=== PATIENT | female | born 1945 | race Caucasian/White ===

== ENCOUNTER 2020-05-29 14:54 | Emergency (ER) | payer MEDICARE, BC, SELFPAY ==
[2020-05-29 15:16] VITALS: BP 172/83; PULSE 70; RESP 16; TEMP 36.4; O2SAT 100; BMI 25.7
--- NOTE | 2020-05-29 15:28 | CT_ITS ---
WS: [id number] CT HEAD NONCONTRAST HISTORY: head injury TECHNIQUE: Contiguous axial imaging performed through the brain in 2.5 mm imaging. Bone and soft tiss ue windows. Sagittal and coronal reformats reviewed. All CT scans at [facility] use at le ast one of these dose optimization techniques: automated exposure control; mA and/or kV adjustment pe r patient size (includes targeted exams where dose is matched to clinical indication); or iterative r econstruction. DLP: 764.85 mGy.cm COMPARISON: None available. No acute intracranial hemorrhage, midline shift or mass effect. Mild atrophy and mild chronic microvascular ischemic disease. 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 Ventricles: Normal size with no hydrocephalus. Paranasal sinuses: As visualized are clear. Mastoid air cells: Well pneumatized. Calvarium and scalp: Skull is intact with no soft tissue edema or swelling. CT/CT head wo con* [id number] IMPRESSION: 1. No acute intracranial hemorrhage or edema. 2. Mild atrophy and chronic ischemic disease.
--- NOTE | 2020-05-30 00:12 | ED_ITS ---
HPI - Head Injury General: Chief complaint: Head Injury Stated complaint: hit head Tuesday, still has pain, not quite right Time Seen by Provider: 05/29/20 16:37 History of Present Illness: HPI Narrative: This patient is a 74-year-old female who fell on Tuesday. She slipped on the ice and fell backwards striking the back of her head. She had no LOC. She has not had nausea vomiting, dizziness. She continues to have some headache and just does not feel right. She cannot be more specific than that. She has been concerned that she could have some intracranial injury and so came into the ER for a CT scan today. Complaint: head injury and fall Onset (ago): day(s) (6) Mechanism of Injury: fall Place: home Loss of Consciousness: no Location of injury: occipital Severity: moderate Radiation: none Other Injuries: none Context: on aspirin Associated symptoms: Reports other (Just does not feel right); Deny nausea, neck pain or vomiting Review of Systems General: Reports: 10 or more systems reviewed and unremarkable except in HPI and below Const: Denies: fever(s), chills, fatigue or malaise Eyes: Denies: change in vision ENMT: Denies: odynophagia Card: Denies: chest pain or swelling of feet/ankles Resp: Denies: dyspnea, productive cough or non-productive cough GI: Denies: abdominal pain, nausea or vomiting : Denies: flank pain or difficulty voiding Musc: Denies: neck pain or back pain Skin/Breast: Denies: rash Neuro: Reports: headache(s); Denies: numbness in extremities or weakness in extremities Juan M/Lymph: Denies: easy bruising or easy bleeding PFSH ED PFSH: Surgical History History of carpal tunnel repair (~2005) History of cholecystectomy (~2005) History of tubal ligation (~1978) Family History Father Hypertension Mother Heart disease Sister Colon cancer Denies family history of Ovarian cancer Diabetes Hyperlipidemia Breast cancer Family history of thyroid problem Stroke Social History Additional social history: - Tobacco use: Denies Alcohol use: Denies Drug use: Denies Physical Exam Const: COMMON NORMALS: no acute distress, patient oriented x3, no limitations and alert GENERAL APPEARANCE: cooperative and comfortable HENMT: HEAD & SCALP: normal to inspection FACE & SINUS: normal facial exam Eye: GENERAL EYE: appearance normal, both eyes and all related structures Neck/C-Spine: COMMON NORMALS: supple, no meningeal signs and no JVD Chest: COMMONS NORMALS: normal inspection of the chest Resp: COMMON NORMALS: normal respiratory effort, No use of accessory muscles and clear to auscultation bilaterally AUSCULTATION: clear to auscultation bilaterally Cardio: COMMON NORMALS: no JVD, regular rate, regular rhythm and No murmurs present (Cardio) RATE: regular rate RHYTHM: regular rhythm GI: COMMON NORMALS: Normal to inspection, nondistended, normoactive bowel sounds present, Soft to palpation and non-tender INSPECTION: Yes normal to inspection AUSCULTATION: Yes normoactive bowel sounds PALPATION: Yes Soft to palpation Back/Pelvis: COMMON NORMALS: thoracic and lumbar spine normal to inspection Extremity: COMMON NORMALS: normal to inspection Neuro: COMMON NORMALS: patient oriented x3, moves all extremities, no focal motor deficits and no sensory deficits noted SENSORIUM/ORIENTATION: Yes alert MENINGEAL SIGNS: Yes no meningeal signs Psych: COMMON NORMALS: mental status grossly normal, cooperative and normal affect Skin: COMMON NORMALS: no rashes or lesions noted and turgor normal GENERAL SKIN EXAM: no rashes or lesions noted and turgor normal Course ED course: CT the head was negative. We discussed concussive signs and symptoms as well as treatment. She was relieved to know that the CT scan was normal. She will follow-up with her PCP as needed. Vital Signs: Vital signs: Vital Signs Temperature 97.5 F L 05/29/20 15:16 Pulse Rate 70 05/29/20 15:16 Respiratory Rate 16 05/29/20 15:16 Blood Pressure 172/83 05/29/20 15:16 Pulse Oximetry 100 05/29/20 15:16 Discharge Plan Discharge Patient Disposition: Home Clinical Impression: Concussion without loss of consciousness Qualifiers: Encounter type: initial encounter Qualified Code(s): S06.0X0A - Concussion without loss of consciousness, initial encounter Condition: Stable Prescriptions: No Action simvastatin 10 mg tablet 10 mg PO DAILY RF: 0 diltiazem HCl 120 mg capsule,extended release 24 hr 120 mg PO DAILY RF: 0 aspirin 81 mg tablet,delayed release (DR/EC) 81 mg PO DAILY RF: 0 valsartan-hydrochlorothiazide 80-12.5 mg tablet 1 tab PO DAILY RF: 0 betamethasone, augmented 0.05 % ointment 1 applic TOPICAL .twice per week Qty: 45 RF: 3 Discharge Orders: Discharge ED (Routine); Ordered 05/29/20 Ordered By: Dorcas Amin Referrals: Omid Rebollar MD [Primary Care Provider] - Discharge Diet: Usual diet Discharge Activity: Resume usual activity Patient Instructions: Concussion (ED), Opioid Safety Activity Restrictions/Additional Instructions: Follow up with your doctor if not improving within another 5 days. Return to [facility] ED if new or worse symptoms. Coding Level of Care Code ED Housekeeping Staff for Lisa May
== END 2020-05-29 17:11 | disposition home or self-care (01) ==
PROVIDERS: Emergency Provider Emergency Medicine; PCP Family Medicine
DX: S06.0X0A Concussion without loss of consciousness, initial encounter (principal); Z79.82 Long term (current) use of aspirin; W00.0XXA Fall on same level due to ice and snow, initial encounter
CPT/HCPCS: 70450; 99282

== ENCOUNTER → 2022-01-05 14:01 | Outpatient (BNVA) | payer MEDICARE, BC, SELFPAY | PROVIDERS: PCP Family Medicine; Visit Provider Nurse Practitioner Women's Health | DX: N95.0 Postmenopausal bleeding (principal) | CPT/HCPCS: 76830; 87624 ==

== ENCOUNTER → 2022-01-28 13:43 | Outpatient (BNVA) | payer MEDICARE, BC, SELFPAY | PROVIDERS: PCP Family Medicine; Visit Provider Nurse Practitioner Women's Health | DX: N95.0 Postmenopausal bleeding (principal) | CPT/HCPCS: 88305 ==

== ENCOUNTER 2022-05-12 10:01 | Day surgery (SDC) | payer MEDICARE, BC, SELFPAY ==
[2022-05-11 11:44] VITALS: BMI 26.6
[2022-05-12] VITALS (9 sets, daily range): BP systolic 127–158; BP diastolic 60–85; PULSE 61–68; RESP 16–18; TEMP 36.2–36.4; O2SAT 95–99
[2022-05-12] MEDS: sodium chloride 0.9% 1,000 ML 30 ML IV (10:35)
[2022-05-12] MEDS: scopolamine 1.5 Patch 1 PATCH TRANSDERMA (10:35)
--- NOTE | 2022-05-12 10:40 | W.PM.OPSUD ---
Surgery/Procedure H&P Update DATE OF PROCEDURE: May 12, 2022 DATE H&P PERFORMED: 05/28/22 H&P UPDATE INFORMATION: I have reviewed H&P completed within last 30 days, I have examined patient prior to procedure and No changes to prior documentation PREOP DIAGNOSIS: PostMenopausal bleeding PLANNED PROCEDURE: Operation Date: 05/12/22 11:20 Proposed Procedures p Hysterosocpy, dilation and curettage with Myosure [id number],[id number],N95.0(Not Applicable) - Urbano Joy MD s Dilation And Curettage (D&C)(Not Applicable) - Urbano Joy MD
[2022-05-12] MEDS: ceFAZolin 2,000 MG in sodium chloride 0.9% (plus) 50 ML 100 MG IV (10:48)
[2022-05-12 10:52] LABS: Basophils % 0.6 %; Eosinophils # 0.2 10^3/uL (0.0-0.8); Eosinophils % 4.6 %; Hematocrit 38.5 % (37.0-47.0); Hemoglobin 12.8 g/dL (11.5-15.3); Lymphocytes # 0.7 10^3/uL (0.8-4.8); Lymphocytes % 18.5 %; Mean Corpuscular HGB Conc 33.2 g/dL (30.0-36.0); Mean Corpuscular Volume 90.4 fl (81-99); Mean Platelet Volume 8.6 fL (7.4-10.4); Monocytes # 0.4 10^3/uL (0.2-0.9); Monocytes % 10.5 %; Neutrophils % 65.5 %; Nucleated Red Blood Cells % 0 %; Platelet Count 311 10^3/cmm (130-400); Red Blood Count 4.26 10^6/uL (4.1-5.3); Red Cell Distribution Width 11.6 % (12.1-15.1); White Blood Count 3.5 10^3/uL (4.0-10.0)
[2022-05-12 11:06] LABS: Alanine Aminotransferase 25 U/L (0-33); Albumin Level 4.4 g/dL (3.5-5.2); Alkaline Phosphatase 112 U/L (35-105); Aspartate Amino Transferase 21 U/L (0-32); Blood Urea Nitrogen 24 mg/dL (8-23); Calcium 9.4 mg/dL (8.5-10.5); Carbon Dioxide 25 mmol/L (22-29); Chloride 108 mmol/L (98-107); Globulin 2.5 g/dL (1.3-4.6); Glucose 95 mg/dL (65-115); Osmolality Calculated 298 mOsm/kg (285-295); Sodium 142 mmol/L (136-145); Total Bilirubin 0.5 mg/dL (0.15-1.2); Total Protein 6.9 g/dL (6.6-8.7)
[2022-05-12 11:06] LABS: Add Urine Microscopic? YES; Bacteria Urine 1+ /hpf; Bilirubin Urine Neg (Negative); Blood Urine Neg (Negative); Glucose Urine UA Norm (Normal); Ketones Urine Negative (Negative); Leukocyte Esterase Urine Trace (Negative); Nitrate Urine Negative (Negative); Protein Urine Neg (Negative); Specific Gravity, Urine 1.025 (1.005-1.030); Urine Appearance Hazy (CLEAR); Urine Color Yellow (Yellow); Urobilinogen Urine Neg (Negative); pH Urine 5 (5-7)
[2022-05-12 11:07] LABS: Add Urine Culture? No
--- NOTE | 2022-05-12 11:22 | ANES.PREANE2 ---
Pre-Anesthetic Assessment Height/Weight: Height 1.63 m Weight 70.307 kg O2 Del Method 05/12/22 10:47 Preop Diagnosis: PostMenopausal bleeding Operation Date: 05/12/22 11:20 Proposed Procedures p Hysterosocpy, dilation and curettage with Myosure 22127,[id number],73219,N95.0(Not Applicable) - Urbano Joy MD s Dilation And Curettage (D&C)(Not Applicable) - Urbano Joy MD Familial anesthetic complications: none Was Beta Yoli taken within 24 hours: N/A Was Clonidine taken within 24 hours: N/A Last intake: Intake Last Liquid Date 05/11/22 Last Liquid Time 20:00 Last Solid Date 05/11/22 Last Solid Time 19:00 Social No alcohol and No tobacco Exam alert, oriented x 3, clear to auscultation bilaterally and regular rate & rhythm Airway Submandibular: within normal limits Cervical ROM: within normal limits Mallampati: Class II Dentition: full CV/HEM Hypertension Metabolic Hyperlipidemia Anesthetic Plan ASA status: 2 Anesthesia: General Medications/Allergies Home Medications Medication Instructions Recorded Confirmed Last Taken Type aspirin 81 mg tablet,delayed 81 mg PO DAILY 10/18/19 05/11/22 05/11/22 08:00 History release diltiazem HCl 120 mg capsule,24 120 mg PO DAILY 10/18/19 05/11/22 05/11/22 History hr,extended release latanoprost 0.005 % eye drops 1 drp ophthalmic (eye) DAILY 11/07/20 05/11/22 05/11/22 History atorvastatin 40 mg tablet 40 mg PO DAILY 11/11/21 05/11/22 05/11/22 History betamethasone, augmented 0.05 % 1 applic topical .twice per week 11/11/21 05/11/22 1 Day Ago Rx topical ointment #45 grams ~05/10/22 potassium chloride 10 mEq 10 meq PO DAILY 11/11/21 05/11/22 05/11/22 History capsule,extended release ultra c0q10 1 tab PO DAILY 11/11/21 05/11/22 05/11/22 History Allergies Allergy/AdvReac Type Severity Reaction Status Date / Time lisinopril Allergy Mild ADR-Cough Verified 05/11/22 11:41 Current Medications Generic Name Dose Route Start Last Admin Trade Name Freq PRN Reason Stop Dose Admin Sodium Chloride 1,000 mls @ 30 mls/hr 05/12/22 10:15 05/12/22 10:35 Sodium Chloride 0.9% IV 05/13/22 10:14 30 mls/hr .Q24H [place] Administration PFSH Anesthesia Medical History Hypertension Lichen sclerosus of female genitalia No pertinent past medical history neghx:htn,dm,thyroid,dvt/pe PCP: Surgical History H/O hand surgery (~2019) tendon release--L hand History of carpal tunnel repair (~2005) History of cholecystectomy (~2005) History of tubal ligation (~1978) Family History Father Hypertension Hyperlipidemia Mother Heart disease Sister No problems noted. Son Hypertension x2 Denies family history of Colon cancer Ovarian cancer Diabetes Breast cancer Family history of thyroid problem Stroke Social History Smoking and tobacco status: never smoked Data Anesthesia 05/12/22 10:39 05/12/22 10:39 Short CBC 05/12/22 Range/Units 10:39 WBC 3.5 L (4.0-10.0) 10^3/uL Hgb 12.8 (11.5-15.3) g/dL Hct 38.5 (37.0-47.0) % MCV 90.4 (81-99) fl Plt Count 311 (130-400) 10^3/cmm Neut % (Auto) 65.5 % Neut # (Auto) 2.30 (1.8-7.7) 10^3/uL BMP 05/12/22 10:39 Sodium 142 Potassium 4.0 Chloride 108 H Carbon Dioxide 25 BUN 24 H Creatinine 0.8 Glucose 95 Calcium 9.4 Liver Function 05/12/22 Range/Units 10:39 Total Bilirubin 0.5 (0.15-1.2) mg/dL AST 21 (0-32) U/L ALT 25 (0-33) U/L Alkaline Phosphatase 112 H (35-105) U/L Albumin 4.4 (3.5-5.2) g/dL Urine 05/12/22 Range/Units 10:17 Urine Color Yellow (Yellow) Urine Appearance Hazy A (CLEAR) Urine pH 5 (5-7) Ur Specific [place] 1.025 (1.005-1.030) Urine Protein Neg (Negative) Urine Glucose (UA) Norm (Normal) Urine Ketones Negative (Negative) Urine Nitrate Negative (Negative) Urine Bilirubin Neg (Negative) Ur Leukocyte Esterase Trace H (Negative) Urine RBC None (0-2) /hpf Urine WBC 5-10 H (0-5) /hpf Cardiac Studies: No Data to Display
--- NOTE | 2022-05-12 11:25 | PM.OP ---
Operative Report Date of procedure: May 12, 2022 Pre-op diagnosis: Preop Diagnosis PostMenopausal bleeding Post-op diagnosis: Same as above. Endometrial polyp. Procedure done: Hysteroscopy with D&C via MyoSure. Hysteroscopic polypectomy. Specimens removed/disposition: Endometrial polyp Pathology: Endometrial polyp Surgeon: Urbano Joy MD Estimated blood loss (mL): 2 IV fluids (mL): 500 Complications: None Brief History: Mrs. Diaz 76-year-old female with postmenopausal bleeding and endometrial thickness Procedure: After informed consent, the risks included but were not limited to bleeding, infection, injury to internal organs. The patient was counseled on a possible laparotomy and on the potential need for hysterectomy. The patient expressed understanding of the risks involved, all questions were answered, and the patient consented to the procedure. The patient was taken to the operating room where general anesthesia was administered. She was placed in the dorsal lithotomy position and prepped and draped in sterile fashion. A time out procedure was performed. The patient was examined under anesthesia and found to have a normal uterus with normal adnexa. A sterile weight speculum was placed in the vagina. The uterus was then gently sounded to [7] cm, and the cervix was dilated. The 0 degrees MyoSure hysteroscope was advanced gently to the uterine fundus while visualizing the monitor. Survey of the uterine cavity showed: Endometrial polyp on the left wall, the fundus shows atrophic endometrium; left ostium was visualized, and lateral wall with atrophic endometrium with endometrial polyp; right ostium visualized, and lateral wall with atrophic endometrium; anterior and posterior miguel are with atrophic endometrium; endocervical canal is normal. The MyoSure device was advanced and the direct visualization the polyp was morcellated without complication. At the end of morcellation the fluid deficit was 15 mL and was estimated at approximately 0 mL were on the floor. There was minimal bleeding noted and the tenaculum removed with goad hemostasis noted. The patient tolerated the procedure well. The patient was taken to the recovery area in stable condition.
--- NOTE | 2022-05-12 14:11 | ANE.PACU2 ---
Inpatient post-anesthesia follow up: Airway intact: Yes Vital signs: Temperature 97.4 F Pulse Rate 64 Respiratory Rate 18 Blood Pressure 145/71 Pulse Oximetry 95 Oxygen Delivery Me thod Room Air Oxygen Flow Rate 6 Fraction of Inspir ed Oxygen Hydration adequate: Yes Nausea and vomiting: No Pain level: 2 Mental status: Baseline
== END 2022-05-12 12:40 | disposition home or self-care (01) ==
PROVIDERS: Visit Provider Obstetrics & Gynecology
PROC: 0UDB8ZZ Extraction of Endometrium, Via Natural or Artificial Opening Endoscopic (ICD-10-PCS; CPT 58558; principal; 2022-05-12 11:10)
PROC: (CPT 58120; 2022-05-12 11:10)
DX: N95.0 Postmenopausal bleeding (principal); I10 Essential (primary) hypertension; E78.5 Hyperlipidemia, unspecified; Z79.82 Long term (current) use of aspirin
CPT/HCPCS: 58558; 80053; 81001; 85025; 86850; 86900; 87077; 87086; 87186; 88305; J0690; J1100; J1885; J2405; J2704; J3010; J7030

== ENCOUNTER → 2022-11-25 12:42 | Outpatient (BNVA) | payer MEDICARE, BC, SELFPAY | PROVIDERS: PCP Nurse Practitioner Women's Health; Referring Provider Nurse Practitioner Women's Health; Visit Provider Nurse Practitioner Family | DX: D22.5 Melanocytic nevi of trunk (principal); L57.8 Other skin changes due to chronic exposure to nonionizing radiation; D69.2 Other nonthrombocytopenic purpura; L57.0 Actinic keratosis; L72.0 Epidermal cyst; Z87.891 Personal history of nicotine dependence | CPT/HCPCS: 10060; 17004; 99203 ==

== ENCOUNTER → 2023-06-02 13:58 | Outpatient (BNVA) | payer MEDICARE, BC, SELFPAY | PROVIDERS: PCP Nurse Practitioner Women's Health; Visit Provider Dermatology | DX: L82.0 Inflamed seborrheic keratosis (principal); L57.0 Actinic keratosis; L91.8 Other hypertrophic disorders of the skin; L30.0 Nummular dermatitis; L72.0 Epidermal cyst; D23.61 Other benign neoplasm of skin of right upper limb, including shoulder | CPT/HCPCS: 17000; 17110; 99214 ==

== ENCOUNTER → 2023-11-30 13:15 | Outpatient (BNVA) | payer MEDICARE, BC, SELFPAY | PROVIDERS: PCP Nurse Practitioner Women's Health; Visit Provider Nurse Practitioner Family | DX: L57.0 Actinic keratosis (principal); L72.0 Epidermal cyst; L30.0 Nummular dermatitis; D18.01 Hemangioma of skin and subcutaneous tissue; D23.61 Other benign neoplasm of skin of right upper limb, including shoulder | CPT/HCPCS: 17000; 99214 ==

== ENCOUNTER → 2024-02-15 10:44 | Outpatient (BNVA) | payer MEDICARE, BC, SELFPAY | PROVIDERS: PCP Nurse Practitioner Women's Health; Visit Provider Surgery | DX: Z12.11 Encounter for screening for malignant neoplasm of colon | CPT/HCPCS: 99024; 99203 ==

== ENCOUNTER → 2024-02-22 09:05 | Outpatient (BNVA) | payer MEDICARE, BC, SELFPAY | PROVIDERS: PCP Nurse Practitioner Women's Health; Visit Provider Family Medicine | DX: K62.5 Hemorrhage of anus and rectum (principal) | CPT/HCPCS: 82274 ==

== ENCOUNTER → 2024-02-29 10:14 | Outpatient (BNVA) | payer MEDICARE, BC, SELFPAY | PROVIDERS: PCP Nurse Practitioner Women's Health; Visit Provider Surgery | DX: K62.5 Hemorrhage of anus and rectum (principal) | CPT/HCPCS: 99213 ==

== ENCOUNTER 2024-03-15 08:35 | Day surgery (SDC) | payer MEDICARE, BC, SELFPAY ==
[2024-03-15 08:55] VITALS: BP 154/81; PULSE 62; RESP 18; TEMP 36.3; O2SAT 98
[2024-03-15] MEDS: sodium chloride 0.9% 500 ML 15 ML IV (09:08)
--- NOTE | 2024-03-15 09:18 | W.PM.OPSUD ---
Surgery/Procedure H&P Update DATE OF PROCEDURE: March 15, 2024 DATE H&P PERFORMED: 02/15/24 H&P UPDATE INFORMATION: I have reviewed H&P completed within last 30 days, I have examined patient prior to procedure, No changes to prior documentation and H&P is in [facility] EMR on date indicated PLANNED PROCEDURE: Operation Date: 03/15/24 09:55 Proposed Procedures p Colonoscopy 45915, G0105, K62.5(Not Applicable) - Avila Lombardi MD
--- NOTE | 2024-03-15 09:44 | ANES.PREANE2 ---
Pre-Anesthetic Assessment Height/Weight: Height 1.63 m Weight 71.214 kg Temp Pulse Resp BP Pulse Ox 97.3 F L 62 18 154/81 98 03/15/24 08:55 03/15/24 08:55 03/15/24 08:55 03/15/24 08:55 03/15/24 08:55 Preop Diagnosis: Rectal Bleeding Operation Date: 03/15/24 09:55 Proposed Procedures p Colonoscopy 92716, G0105, K62.5(Not Applicable) - Avila Lombardi MD Familial anesthetic complications: none Was Beta Yoli taken within 24 hours: N/A Was Clonidine taken within 24 hours: N/A Last intake: Intake Last Liquid Date 03/14/24 Last Liquid Time 21:00 Last Solid Date 03/13/24 Last Solid Time 19:00 Social Alcohol (monthly) Exam alert, oriented x 3, clear to auscultation bilaterally and regular rate & rhythm Airway Submandibular: within normal limits Cervical ROM: within normal limits Mallampati: Class II Dentition: full Pulmonary None reported CV/HEM Hypertension Angiogram 09/02/23 30% blockage per patient. None reported Hepatic None reported GI None reported Metabolic Hyperlipidemia [facility] None reported Neuropsych None reported Anesthetic Plan ASA status: 2 Anesthesia: MAC Medications/Allergies Home Medications Medication Instructions Recorded Confirmed Last Taken Type aspirin 81 mg tablet,delayed 81 mg PO DAILY 10/18/19 03/13/24 03/12/24 History release diltiazem HCl 120 mg capsule,24 120 mg PO DAILY 10/18/19 03/13/24 03/14/24 History hr,extended release atorvastatin 40 mg tablet 40 mg PO DAILY 11/11/21 03/13/24 03/14/24 History ultra c0q10 1 tab PO DAILY 11/11/21 03/13/24 03/14/24 History betamethasone, augmented 0.05 % 1 applic topical .twice weekly 02/08/24 03/13/24 03/14/24 Rx topical ointment skin irritation #45 grams psyllium husk 3.4 gram/5.4 gram 1 tbsp PO DAILY 02/08/24 03/13/24 03/14/24 History oral powder (Metamucil) valsartan 80 1 tab PO DAILY 11/06/24 12/03/24 12/04/24 History mg-hydrochlorothiazide 12.5 mg tablet Allergies Allergy/AdvReac Type Severity Reaction Status Date / Time lisinopril Allergy Mild ADR-Cough Verified 02/29/24 10:15 Current Medications Generic Name Dose Route Start Last Admin Trade Name Freq PRN Reason Stop Dose Admin Sodium Chloride 500 mls @ 15 mls/hr 03/15/24 08:44 03/15/24 09:08 Sodium Chloride 0.9% IV 03/16/24 08:43 15 mls/hr .Q24H PRN Administration COLONOSCOPY FLUIDS PFSH Anesthesia Medical History No pertinent past medical history neghx:htn,dm,thyroid,dvt/pe PCP: Lichen sclerosus of female genitalia Hypertension Surgical History Status post hysteroscopic polypectomy (~05/12/22) Hysteroscopy D&C and polypectomy with MyoSure performed by Dr. Joy for Postmenopausal bleeding. H/O hand surgery (~2019) tendon release--L hand History of carpal tunnel repair (~2005) History of cholecystectomy (~2005) History of tubal ligation (~1978) Family History Father Hypertension Hyperlipidemia Mother Heart disease Sister Colon cancer Son Hypertension x2 Denies family history of Ovarian cancer Diabetes Breast cancer Family history of thyroid problem Stroke Social History Smoking and tobacco/nicotine status: never used tobacco/nicotine Alcohol intake: current Alcohol intake frequency: holidays/special occasions only Data Anesthesia Cardiac Studies: No Data to Display
[2024-03-15 10:28] VITALS: BP 125/59; PULSE 68; RESP 18; TEMP 36.3; O2SAT 95
[2024-03-15 10:40] VITALS: BP 118/64; PULSE 58; RESP 18; O2SAT 98
--- NOTE | 2024-03-15 11:15 | ANE.PACU2 ---
Inpatient post-anesthesia follow up: Airway intact: Yes Vital signs: Temperature 97.4 F Pulse Rate 58 Respiratory Rate 18 Blood Pressure 118/64 Pulse Oximetry 98 Oxygen Delivery Me thod Room Air Oxygen Flow Rate 5 Fraction of Inspir ed Oxygen Hydration adequate: Yes Nausea and vomiting: No Pain level: 1 Mental status: Baseline
== END 2024-03-15 11:15 | disposition home or self-care (01) ==
PROVIDERS: Visit Provider Surgery
PROC: 0DJD8ZZ Inspection of Lower Intestinal Tract, Via Natural or Artificial Opening Endoscopic (ICD-10-PCS; CPT 45378; principal; 2024-03-15 09:55)
DX: Z12.11 Encounter for screening for malignant neoplasm of colon (principal); D12.2 Benign neoplasm of ascending colon; D12.4 Benign neoplasm of descending colon; D12.3 Benign neoplasm of transverse colon; I10 Essential (primary) hypertension; E78.5 Hyperlipidemia, unspecified; Z79.82 Long term (current) use of aspirin
CPT/HCPCS: 45380; 45385; 88305; J2704; J7040

== ENCOUNTER → 2024-03-21 07:39 | Outpatient (BNVA) | payer MEDICARE, BC, SELFPAY | PROVIDERS: Visit Provider Surgery | DX: Z09 Encounter for follow-up examination after completed treatment for conditions other than malignant neoplasm (principal) | CPT/HCPCS: 99213 ==

== ENCOUNTER → 2024-08-14 11:03 | Outpatient (BNVA) | payer MEDICARE, BC, SELFPAY | PROVIDERS: PCP Family Medicine; Visit Provider Surgery | DX: K92.1 Melena (principal); R10.9 Unspecified abdominal pain | CPT/HCPCS: 99213 ==

== ENCOUNTER 2024-08-24 10:56 | Outpatient (CLI) | payer MEDICARE, BC, SELFPAY ==
--- NOTE | 2024-08-24 11:00 | CT_ITS ---
WS: [id number] CT ABDOMEN AND PELVIS WITH CONTRAST HISTORY: Abdominal pain (rectal bleed) TECHNIQUE: Imaging performed of the abdomen and pelvis with IV contrast. Single phase imaging of the abdomen. Coronal and sagittal reformats are submitted. All CT scans at [facility] use at least one of these dose optimization techniques: automated exposure control; mA and/or kV adjustment per patient size (includes targeted exams where dose is matched to clinical indication); or iterative reconstruction. IV CONTRAST: Omnipaque 350; 100 mL IV. Oral contrast: No DLP: 407.00 mGy.cm COMPARISON: None available. Lower thorax: Lung bases are clear. Heart is normal size. Small hiatal hernia. Liver/biliary system: Normal size with no intrahepatic dilatation. Gallbladder: Normal. No gallstones or wall thickening. No pericholecystic fluid. Pancreas: Normal size pancreas and pancreatic duct. No adjacent inflammation. Spleen: Normal size spleen. No mass or infarct. Adrenal glands: Normal. Right kidney: Normal size kidney. No obstruction. Cortical hypodensities with the largest measuring 6.6 mm. These are really too small to characterize but are probably cysts. Left kidney: Normal. Aorta: Normal. Lymphadenopathy: None. Free fluid: None. GI tract: Stomach is well distended with fluid. There are 2 areas of increased density within the stomach. The largest 11 mm towards the antrum. The smaller area of increased density along the greater curvature. These may be blush like areas of enhancement within the stomach or ingested food products. No oral contrast was provided for this exam. There is no small bowel obstruction. No colon obstruction. No enhancing colonic lesions. Mild diverticular disease. No appendicitis. Abdominal wall: Tiny umbilical hernia. Pelvis: No free fluid or adenopathy within the pelvis. Normal bladder. Bones: Facet joint arthropathy. No destructive bone lesions. CT/CT abdomen pelvis w con* [id number] IMPRESSION: 1. No GI tract obstruction. 2. Areas of increased attenuation within the stomach as described above. These may be ingested material but polyp-like areas of enhancement need to be exclud ed. Upper endoscopy may be of value. 3. Sigmoid diverticulosis without acute diverticulitis. No enhancing colonic l esions. 4. No renal obstruction. 5. Prior cholecystectomy.
[2024-08-24] MEDS: iohexol 350 mg/mL 500 mL Btl (per mL) IV (11:20)
[2024-08-24 11:24] LABS: Blood Urea Nitrogen 25 mg/dL (8-23)
== END 2024-08-24 10:57 | disposition home or self-care (01) ==
LOC: RAD 10:58
PROVIDERS: PCP Family Medicine; Visit Provider Surgery
DX: K92.1 Melena (principal); R93.3 Abnormal findings on diagnostic imaging of other parts of digestive tract; Z90.49 Acquired absence of other specified parts of digestive tract; K57.30 Diverticulosis of large intestine without perforation or abscess without bleeding; K44.9 Diaphragmatic hernia without obstruction or gangrene; R93.421 Abnormal radiologic findings on diagnostic imaging of right kidney; M47.9 Spondylosis, unspecified
CPT/HCPCS: 74177; 82565; 84520

== ENCOUNTER → 2024-08-30 11:43 | Outpatient (BNVA) | payer MEDICARE, BC, SELFPAY | PROVIDERS: PCP Family Medicine; Visit Provider Surgery | DX: K31.7 Polyp of stomach and duodenum (principal) | CPT/HCPCS: 99212 ==

== ENCOUNTER 2024-09-27 07:06 | Day surgery (SDC) | payer MEDICARE, BC, SELFPAY ==
[2024-09-27 07:20] VITALS: BP 157/91; PULSE 56; RESP 18; TEMP 36.1; O2SAT 98; BMI 26.6
--- NOTE | 2024-09-27 07:40 | W.PM.OPSUD ---
Surgery/Procedure H&P Update DATE OF PROCEDURE: September 27, 2024 DATE H&P PERFORMED: 08/30/24 H&P UPDATE INFORMATION: I have reviewed H&P completed within last 30 days, I have examined patient prior to procedure, No changes to prior documentation, Changes to prior documentation as noted here and Risks and benefits of the procedure reviewed PLANNED PROCEDURE: Operation Date: 09/27/24 08:35 Proposed Procedures p EGD 78243 K31.7(Not Applicable) - Avila Lombardi MD
--- NOTE | 2024-09-27 07:51 | ANES.PREANE2 ---
Pre-Anesthetic Assessment Height/Weight: Height 1.63 m Weight 70.307 kg Temp Pulse Resp BP Pulse Ox O2 Del Method 97 F L 56 L 18 157/91 98 Room Air 09/27/24 07:20 09/27/24 07:20 09/27/24 07:20 09/27/24 07:20 09/27/24 07:20 09/27/24 07:20 Preop Diagnosis: Stomach polyp Operation Date: 09/27/24 08:35 Proposed Procedures p EGD 02520 K31.7(Not Applicable) - Avila Lombardi MD Familial anesthetic complications: none Was Beta Yoli taken within 24 hours: N/A Was Clonidine taken within 24 hours: N/A Last intake: Intake Last Liquid Date 09/26/24 Last Liquid Time 20:00 Last Solid Date 09/26/24 Last Solid Time 19:00 Social Alcohol (occasional, monthly use ) and No tobacco Exam alert, oriented x 3 and clear to auscultation bilaterally Airway Mallampati: Class II Dentition: full History/ROS No significant history except as noted Pulmonary None reported CV/HEM Hypertension angiogram 08/2023, 30%blockage medically managed per pt None reported Hepatic None reported GI stomach polyp Metabolic Hyperlipidemia [facility] [place] None reported Neuropsych None reported Anesthetic Plan ASA status: 2 Anesthesia: Anesthesia Evaluation and MAC Risk of > 500 ml blood loss (7ml/kg in children): No Medications/Allergies Home Medications ?Medication ?Instructions ?Recorded ?Confirmed ?Last Taken ?Type aspirin 81 mg tablet,delayed 81 mg PO DAILY 10/18/19 09/25/24 09/26/24 History release atorvastatin 40 mg tablet 40 mg PO DAILY 11/11/21 09/25/24 09/26/24 History ultra c0q10 1 tab PO DAILY 11/11/21 09/25/24 09/26/24 History psyllium husk 3.4 gram/5.4 gram 1 tbsp PO DAILY 02/08/24 09/25/24 09/26/24 History oral powder (Metamucil) diltiazem HCl 240 mg 240 mg PO DAILY 08/14/24 09/25/24 09/26/24 History capsule,extended release 24 hr nitroglycerin 0.4 mg sublingual 0.4 mg sublingual Q5M PRN Chest 08/14/24 09/25/24 Unknown History tablet Pain valsartan 160 1 tab PO DAILY 08/14/24 09/25/24 09/26/24 History mg-hydrochlorothiazide 12.5 mg tablet Allergies Allergy/AdvReac Type Severity Reaction Status Date / Time lisinopril Allergy Mild ADR-Cough Verified 09/25/24 09:03 [facility] Anesthesia Medical History No pertinent past medical history neghx:htn,dm,thyroid,dvt/pe PCP: Lichen sclerosus of female genitalia Hypertension Surgical History Status post hysteroscopic polypectomy (~05/12/22) Hysteroscopy D&C and polypectomy with MyoSure performed by Dr. Joy for Postmenopausal bleeding. H/O hand surgery (~2019) tendon release--L hand History of carpal tunnel repair (~2005) History of cholecystectomy (~2005) History of tubal ligation (~1978) Family History Father Hypertension Hyperlipidemia Mother Heart disease Sister Colon cancer Son Hypertension x2 Denies family history of Ovarian cancer Diabetes Breast cancer Family history of thyroid problem Stroke Social History Smoking and tobacco/nicotine status: never used tobacco/nicotine Alcohol intake: current Alcohol intake frequency: holidays/special occasions only
[2024-09-27] MEDS: sodium chloride 0.9% 1,000 ML 15 ML IV (07:55)
[2024-09-27 08:17] VITALS: BP 133/82; PULSE 64; RESP 18; TEMP 36.1; O2SAT 96
[2024-09-27 08:28] VITALS: BP 129/79; PULSE 50; RESP 18; TEMP 36.2; O2SAT 97
--- NOTE | 2024-09-27 08:49 | ANE.PACU2 ---
Inpatient post-anesthesia follow up: Airway intact: Yes Vital signs: Temperature 97.1 F Pulse Rate 50 Respiratory Rate 18 Blood Pressure 129/79 Pulse Oximetry 97 Oxygen Delivery Me thod Room Air Oxygen Flow Rate Fraction of Inspir ed Oxygen Hydration adequate: Yes Nausea and vomiting: No Pain level: 1 Mental status: Baseline
== END 2024-09-27 08:49 | disposition home or self-care (01) ==
PROVIDERS: PCP Family Medicine; Visit Provider Surgery
PROC: 0DJ08ZZ Inspection of Upper Intestinal Tract, Via Natural or Artificial Opening Endoscopic (ICD-10-PCS; principal; 2024-09-27 08:35)
DX: K29.70 Gastritis, unspecified, without bleeding (principal); K31.7 Polyp of stomach and duodenum; I10 Essential (primary) hypertension; E78.5 Hyperlipidemia, unspecified; Z79.82 Long term (current) use of aspirin; Z88.8 Allergy status to other drugs, medicaments and biological substances; Z79.899 Other long term (current) drug therapy; Z80.0 Family history of malignant neoplasm of digestive organs
CPT/HCPCS: 43239; 88305; J2704; J7030

== ENCOUNTER → 2024-10-10 13:49 | Outpatient (BNVA) | payer MEDICARE, BC, SELFPAY | PROVIDERS: PCP Family Medicine; Visit Provider Surgery | DX: Z09 Encounter for follow-up examination after completed treatment for conditions other than malignant neoplasm (principal) | CPT/HCPCS: 99213 ==

== ENCOUNTER → 2024-11-28 12:59 | Outpatient (BNVA) | payer MEDICARE, BC, SELFPAY | PROVIDERS: PCP Family Medicine; Visit Provider Nurse Practitioner Family | DX: D23.61 Other benign neoplasm of skin of right upper limb, including shoulder (principal); L72.0 Epidermal cyst; L57.0 Actinic keratosis | CPT/HCPCS: 17000; 99213 ==